=== PATIENT | male | born 1940 | race Caucasian/White ===

== ENCOUNTER 2025-01-12 10:34 | Inpatient (IN) | payer MEDICARE, OTHER ==
[2025-01-12] VITALS (36 sets, daily range): BP systolic 81–114; BP diastolic 49–89; PULSE 106–124; RESP 18–25; TEMP 34.2–36.4736; O2SAT 87–99
[~2025-01-12] VITALS: Ht 170.2 cm; Wt 52.2 kg
[2025-01-12] MEDS ORDERED: VANCOMYCIN 1.5GM/250ML 250 ML IV SCH (11:00)
[2025-01-12] MEDS: PIPERACILLIN/TAZO 3.375G/50ML 50 ML IV SCH ×2 (11:12→21:35)
[2025-01-12] MEDS: SODIUM CHLORIDE 0.9% (SEPSIS BOLUS) IV ONE (11:12)
[2025-01-12] MEDS: NOREPINEPHRINE 8MG/250ML PMX 250 ML IV ONE (11:12)
[2025-01-12] MEDS: DEXTROSE 50% WATER 50ML SYRINGE IV ONE (11:12)
[2025-01-12 11:37] LABS: BASOPHILS % 0.2 % (0.0-2.0); EOSINOPHILS % 0.0 % (0.0-5.0); LYMPHOCYTES % 9.0 % (20.0-50.0); MEAN PLATELET VOLUME 8.8 fl (7.4-10.4); MONOCYTES % 8.4 % (2.0-8.0); NEUTROPHILS % 82.4 % (40.0-76.0); PLATELET 200 x1000/uL (130-400); RED BLOOD CELL COUNT 1.73 mill/uL (4.7-6.1); RED CELL DISTRIBUTION WIDTH 18.9 % (11.6-14.6)
[2025-01-12 11:42] LABS: CLARITY URINE TURBID (CLEAR); COLOR URINE DARK YELLOW (YELLOW); GLUCOSE URINE NEGATIVE (NEGATIVE); KETONES URINE NEGATIVE (NEGATIVE); LEUKOCYTE ESTERASE URINE 3+ (NEGATIVE); NITRITE URINE NEGATIVE (NEGATIVE); OCCULT BLOOD URINE 1+ (NEGATIVE); PH URINE >=9.0 (4.5-8.0); PROTEIN URINE 2+ (NEGATIVE); SPECIFIC GRAVITY URINE 1.022 (1.005-1.030); UROBILINOGEN URINE 0.2 E.U./dL (0.2-1.0)
[2025-01-12 11:47] LABS: CREATININE 3.2 mg/dL (0.6-1.3); HEMOGLOBIN. 5.5 g/dL (14.0-18.0); UREA NITROGEN BLOOD 71 mg/dL (9-23)
[2025-01-12 11:48] LABS: HEMATOCRIT. 18.7 % (42.0-52.0)
[2025-01-12 11:49] LABS: ASPARTATE AMINOTRANSFERASE 29 IU/L (<34); BILIRUBIN DIRECT 0.2 mg/dL (<=3.0); BILIRUBIN TOTAL 0.3 mg/dL (0.1-1.0); INR 1.1; PROTEIN TOTAL 4.1 g/dL (6.0-8.3)
[2025-01-12 12:30] LABS: WBC URINE TNTC /hpf (0-2)
[2025-01-12] MEDS ORDERED: EPINEPHRINE 10 MG in SODIUM CHLORIDE 0.9% 240 ML IV PRN (12:30)
[2025-01-12 12:31] LABS: BACTERIA URINE 4+; SQUAMOUS EPITHELIAL CELL URINE NONE SEEN /lpf (RARE/1+)
[2025-01-12 12:32] LABS: TRIPLE PHOSPHATE CRYSTAL URINE 1+ /lpf
[2025-01-12] MEDS: DEXT 5%/0.9% NACL 1,000 ML IV ONE ×2 (12:41→12:42)
[2025-01-12] MEDS: VANCOMYCIN 1.5GM PMX (XELLIA) 250 ML IV NR (12:42)
[2025-01-12] MEDS: EPINEPHRINE 10 MG in SODIUM CHLORIDE 0.9% 240 ML IV PRN (12:50)
[2025-01-12] MEDS ORDERED: VASOPRESSIN 20 UNIT in SODIUM CHLORIDE 0.9% 99 ML IV SCH (13:30)
[2025-01-12 13:43] LABS: BG BASE EXCESS -23.6 mmol/L (-2.0-3.0); BG CARBOXYHEMOGLOBIN 0.2 % (0.5-1.5); BG DEOXYHEMOGLOBIN 10.8 % (0.0-5.0); BG FLOW(L/min) 5.00 L/min; BG FRACTION INSPIRED OXYGEN 40; BG HCO3 ACT 5.2 mmol/L (21.0-28.0); BG METHEMOGLOBIN 0.3 % (0.5-1.5); BG OXYGEN SATURATION 89.1 % (94.0-98.0); BG OXYHEMOGLOBIN 88.7 % (94.0-98.0); BG PCO2 19.5 mmHg (35.0-48.0); BG PH 7.043 (7.350-7.450); BG PO2 77.6 mmHg (83.0-108.0); BG SAMPLE SITE LEFT BRACHIAL; BG TOTAL HEMOGLOBIN 10.3 g/dL (13.5-17.5); BG VENT MODE NASAL CANNULA
[2025-01-12] MEDS: CALCIUM CHLORIDE 1GM/10ML SYR IV ONE (13:52)
[2025-01-12] MEDS: VASOPRESSIN 20 UNIT in SODIUM CHLORIDE 0.9% 99 ML IV PRN (13:56)
[2025-01-12] MEDS: HYDROCORTISONE SOD SUCCINATE 100 MG/2 ML VIAL IV ONE (13:59)
[2025-01-12] MEDS ORDERED: PIPERACILLIN/TAZO 3.375G/50ML 50 ML IV SCH (14:00)
[2025-01-12] MEDS: SODIUM BICARBONATE 8.4% 50MEQ/50ML SYR IV NR (15:08)
[2025-01-12] MEDS ORDERED: ACETAMINOPHEN 325MG TABLET PO PRN (15:30)
[2025-01-12] MEDS ORDERED: GUAIFENESIN 200MG/10ML SUGAR FREE UDC PO PRN (15:30)
[2025-01-12] MEDS ORDERED: DEXTROSE 50% WATER 50ML SYRINGE IV PRN (15:30)
[2025-01-12] MEDS ORDERED: ACETAMINOPHEN 650MG/20.3ML UDC GT PRN (15:30)
[2025-01-12] MEDS ORDERED: ONDANSETRON HCL 4MG/2ML INJ IV PRN (15:30)
[2025-01-12] MEDS ORDERED: AZITHROMYCIN 500 MG in DEXT 5% WATER 250 ML IV SCH (15:30)
[2025-01-12] MEDS ORDERED: DOCUSATE SODIUM 100MG CAPSULE PO PRN (15:30)
[2025-01-12] MEDS: INSULIN REGULAR (HUMULIN R) 1000UNITS/10ML VIAL IV NR ×2 (15:36→19:38)
[2025-01-12] MEDS ORDERED: SODIUM BICARBONATE 150 MEQ in DEXTROSE 5% WATER 1,000 ML IV ONE (16:00)
[2025-01-12] MEDS: SODIUM BICARBONATE 150 MEQ in DEXTROSE 5% WATER 850 ML IV ONE (17:53)
[2025-01-12] MEDS: NOREPINEPHRINE 8MG/250ML PMX 250 ML IV PRN (17:54)
[2025-01-12] MEDS: BLOOD SUGAR DIAGNOSTIC STRIP TEST SCH (18:22)
[2025-01-12] MEDS: INSULIN GLARGINE 100 UNITS/ML SUBCUT NR (19:39)
[2025-01-12] MEDS: DOXYCYCLINE 100MG/100ML 100 ML IV SCH (19:39)
[2025-01-12] MEDS: PANTOPRAZOLE SODIUM 40 MG/VIAL IV SCH (20:59)
[2025-01-12] MEDS ORDERED: INSULIN LISPRO 100 UNITS/ML SUBCUT SCH (22:00)
[2025-01-12] MEDS ORDERED: BLOOD SUGAR DIAGNOSTIC STRIP TEST SCH (22:00)
[2025-01-12] MEDS ORDERED: FINA5TAB11 PO (22:12)
[2025-01-12] MEDS ORDERED: AMLO10TA80 PO (22:12)
[2025-01-12] MEDS ORDERED: POTA20LI50 PO (22:12)
[2025-01-12] MEDS ORDERED: RISP0.5T79 PO (22:12)
[2025-01-12] MEDS ORDERED: POTA-204 PO (22:12)
[2025-01-12] MEDS ORDERED: TERA5CAP4 PO (22:12)
[2025-01-12] MEDS ORDERED: METF-414 PO (22:12)
[2025-01-12 22:23] LABS: CREATININE 3.1 mg/dL (0.6-1.3); UREA NITROGEN BLOOD 62 mg/dL (9-23)
[2025-01-12] MEDS: INSULIN LISPRO 100 UNITS/ML SUBCUT SCH (23:49)
[2025-01-13] VITALS (100 sets, daily range): BP systolic 57–127; BP diastolic 33–98; PULSE 0–120; RESP 10–29; TEMP 36.7–36.8; O2SAT 53–99
[2025-01-13] MEDS: BLOOD SUGAR DIAGNOSTIC STRIP TEST SCH
[2025-01-13] MEDS: DOXYCYCLINE 100MG/100ML 100 ML IV SCH (05:46)
[2025-01-13 07:32] LABS: CREATININE 3.0 mg/dL (0.6-1.3)
[2025-01-13 07:33] LABS: LDL CHOLESTEROL 22 mg/dL (5-100); TRIGLYCERIDE 51 mg/dL (0-150); UREA NITROGEN BLOOD 71 mg/dL (9-23)
[2025-01-13 07:34] LABS: ASPARTATE AMINOTRANSFERASE 53 IU/L (<34)
[2025-01-13 07:35] LABS: BILIRUBIN DIRECT 0.2 mg/dL (<=3.0); BILIRUBIN TOTAL 0.4 mg/dL (0.1-1.0); PHOSPHORUS 2.8 mg/dL (2.5-4.9); PROTEIN TOTAL 5.3 g/dL (6.0-8.3)
[2025-01-13 07:37] LABS: T4 FREE 1.14 ng/dL (0.89-1.76)
[2025-01-13 07:39] LABS: HEMATOCRIT. 33.1 % (42.0-52.0); HEMOGLOBIN. 10.9 g/dL (14.0-18.0); MEAN PLATELET VOLUME 9.3 fl (7.4-10.4); PLATELET 254 x1000/uL (130-400); RED BLOOD CELL COUNT 3.47 mill/uL (4.7-6.1); RED CELL DISTRIBUTION WIDTH 19.0 % (11.6-14.6)
[2025-01-13] MEDS: DEXTROSE 50% WATER 50ML SYRINGE IV PRN (07:52)
[2025-01-13] MEDS: DEXTROSE 50% WATER 50ML SYRINGE IV NR (08:26)
[2025-01-13] MEDS ORDERED: DEXTROSE 5% WATER 1,000 ML IV SCH (10:00)
[2025-01-13] MEDS: MAGNESIUM 2 G PREMIX 50 ML IV NR (10:20)
[2025-01-13] MEDS: SODIUM BICARBONATE 8.4% 50MEQ/50ML SYR IV NR (10:21)
[2025-01-13] MEDS: MAGNESIUM 1 G PREMIX 100 ML IV NR (10:21)
[2025-01-13 11:50] LABS: *AMPHETAMINES SCREEN URINE NEGATIVE (NEGATIVE); *BARBITURATES SCREEN URINE NEGATIVE (NEGATIVE); *BENZODIAZEPINES SCREEN URINE NEGATIVE (NEGATIVE); *COCAINE SCREEN URINE NEGATIVE (NEGATIVE); CANNABINOID URINE SCREEN NEGATIVE (NEGATIVE); ECSTASY MDMA SCREEN URINE CONF.TEST INDICATED (NEGATIVE); METHADONE URINE SCREEN NEGATIVE (NEGATIVE); OPIATES URINE SCREEN NEGATIVE (NEGATIVE); PHENCYCLIDINE URINE SCREEN NEGATIVE (NEGATIVE)
[2025-01-13] MEDS ORDERED: SODIUM BICARBONATE 100 MEQ in DEXTROSE 5% WATER 900 ML IV SCH (12:00)
[2025-01-13] MEDS: SODIUM BICARBONATE 100 MEQ in DEXT 10% WATER 900 ML IV SCH (14:25)
[2025-01-13] MEDS ORDERED: IPRATROPIUM/ALBUTEROL 0.5-3(2.5)MG/3ML NEB HHN PRN (15:30)
[2025-01-13 16:13] LABS: ASPARTATE AMINOTRANSFERASE 69 IU/L (<34); BILIRUBIN DIRECT 0.2 mg/dL (<=3.0); BILIRUBIN TOTAL 0.4 mg/dL (0.1-1.0); PROTEIN TOTAL 4.8 g/dL (6.0-8.3)
[2025-01-13 16:38] LABS: BG BASE EXCESS -3.0 mmol/L (-2.0-3.0); BG CARBOXYHEMOGLOBIN 0.4 % (0.5-1.5); BG DEOXYHEMOGLOBIN 16.9 % (0.0-5.0); BG FLOW(L/min) 40.00 L/min; BG FRACTION INSPIRED OXYGEN 100; BG HCO3 ACT 20.0 mmol/L (21.0-28.0); BG METHEMOGLOBIN 0.1 % (0.5-1.5); BG OXYGEN SATURATION 83.0 % (94.0-98.0); BG OXYHEMOGLOBIN 82.6 % (94.0-98.0); BG PCO2 29.2 mmHg (35.0-48.0); BG PH 7.453 (7.350-7.450); BG PO2 46.7 mmHg (83.0-108.0); BG SAMPLE SITE RIGHT RADIAL; BG TOTAL HEMOGLOBIN 11.4 g/dL (13.5-17.5); BG VENT MODE HIGH FLOW
[2025-01-13 16:56] LABS: FOLIC ACID (FOLATE) SERUM 7.36 ng/mL (>5.38)
[2025-01-13 16:58] LABS: VITAMIN B12 SERUM > 2000 pg/mL (211-911)
[2025-01-13 17:58] LABS: BAND% 11.0 % (1.0-6.0); LYMPHOCYTES % MANUAL 8.0 % (20.0-50.0); MONOCYTES % MANUAL 8.0 % (2.0-8.0); NEUTROPHILS % MANUAL 73.0 % (45.0-75.0); PLATELET ESTIMATE NORMAL
[2025-01-13] MEDS ORDERED: IPRATROPIUM/ALBUTEROL 0.5-3(2.5)MG/3ML NEB HHN SCH (18:00)
[2025-01-13] MEDS ORDERED: ACETYLCYSTEINE 200MG/ML 20% VIAL 4ML INH SCH (22:00)
[2025-01-14] MEDS ORDERED: IPRATROPIUM/ALBUTEROL 0.5-3(2.5)MG/3ML NEB HHN SCH
[2025-01-14] MEDS ORDERED: GUAIFENESIN 200MG/10ML SUGAR FREE UDC PO SCH
== END 2025-01-13 22:00 | DRG 871 ==
LOC: ER 10:34 → CVICU 14:46 → EDBEDREQ 14:50 → EDBEDREQTM 14:50
PROVIDERS: ADMIT Internal Medicine; ATTEND Internal Medicine
PROC: 02HV33Z Insertion of Infusion Device into Superior Vena Cava, Percutaneous Approach (ICD-10-PCS; principal; 2025-01-12)
PROC: B548ZZA Ultrasonography of Superior Vena Cava, Guidance (ICD-10-PCS; 2025-01-12)
PROC: 30243N1 Transfusion of Nonautologous Red Blood Cells into Central Vein, Percutaneous Approach (ICD-10-PCS; 2025-01-12)
PROC: 5A0935A Assistance with Respiratory Ventilation, Less than 24 Consecutive Hours, High Flow/Velocity Cannula (ICD-10-PCS; 2025-01-13)
DX: A41.9 Sepsis, unspecified organism (principal); E43 Unspecified severe protein-calorie malnutrition; R65.21 Severe sepsis with septic shock; J18.9 Pneumonia, unspecified organism; J96.01 Acute respiratory failure with hypoxia; N17.0 Acute kidney failure with tubular necrosis; G93.41 Metabolic encephalopathy; E87.20 Acidosis, unspecified; J44.0 Chronic obstructive pulmonary disease with (acute) lower respiratory infection; N39.0 Urinary tract infection, site not specified; B96.89 Other specified bacterial agents as the cause of diseases classified elsewhere; I50.32 Chronic diastolic (congestive) heart failure; I13.0 Hypertensive heart and chronic kidney disease with heart failure and stage 1 through stage 4 chronic kidney disease, or unspecified chronic kidney disease; E11.649 Type 2 diabetes mellitus with hypoglycemia without coma; F03.90 Unspecified dementia, unspecified severity, without behavioral disturbance, psychotic disturbance, mood disturbance, and anxiety; D64.9 Anemia, unspecified; E87.0 Hyperosmolality and hypernatremia; N13.8 Other obstructive and reflux uropathy; Z68.1 Body mass index [BMI] 19.9 or less, adult; L89.156 Pressure-induced deep tissue damage of sacral region; N18.1 Chronic kidney disease, stage 1; E11.22 Type 2 diabetes mellitus with diabetic chronic kidney disease; E78.5 Hyperlipidemia, unspecified; Z66 Do not resuscitate; N40.0 Benign prostatic hyperplasia without lower urinary tract symptoms; L22 Diaper dermatitis; R32 Unspecified urinary incontinence; S80.812A Abrasion, left lower leg, initial encounter; E87.5 Hyperkalemia; Z74.01 Bed confinement status; Z79.84 Long term (current) use of oral hypoglycemic drugs; Z87.440 Personal history of urinary (tract) infections; Z82.49 Family history of ischemic heart disease and other diseases of the circulatory system; Z83.3 Family history of diabetes mellitus; X58.XXXA Exposure to other specified factors, initial encounter; Y93.89 Activity, other specified; Y92.89 Other specified places as the place of occurrence of the external cause; Y99.8 Other external cause status
CPT/HCPCS: 36415; 36556; 36600; 71045; 76770; 80048; 80061; 80076; 80305; 81003; 82375; 82550; 82607; 82728; 82746; 82805; 82962; 83036; 83540; 83550; 83605; 83735; 83930; 84100; 84145; 84439; 84443; 85014; 85018; 85025; 85044; 85379; 86850; 86900; 86920; 87077; 87186; 93005; 93970; 94070; 94664; 98960; 99291; A4606; J1720; J1815; J2470; J2543; J3373; J3475; J3490; J7030; J7050; J7070; P9016